=== PATIENT | male | born 1985 | race Caucasian/White ===

== ENCOUNTER 2023-09-19 12:53 | Emergency (ER) | payer SELFPAY ==
--- NOTE | 2023-09-19 13:13 | ED_ITS ---
HPI - General Adult General Chief complaint: Psychiatric Symptoms Stated complaint: SI, SECTION 12 BY PD, SERIVJESSICA DOG WITH PT PER EMS Time Seen by Provider: 09/19/23 13:06 Source: patient, EMS and police Mode of arrival: EMS Limitations: no limitations History of Present Illness ED Provider: Susanna Foreman PA-C HPI narrative: Patient is a 37 year old assigned male at with no reported medical history presenting to the emergency department today on a section 12 after calling a [place] crisis line. Patient states that he called the crisis line and asked to speak to someone other than who he was speaking to originally, an argument broke out between them, and she called the police to pick him up and take him to the hospital. Crisis line states that the patient made a suicidal statement during the conversation with them. Patient states that he is trying to get back to [place] but didn't have enough money for gas. Patient states that he was going to meet up with friends today to get gas money to go back to [place]. Patient denies any suicidal ideation or homicidal ideation. Patient denies any dizziness, lightheadedness, abdominal pain, nausea, vomiting, fever, chills, blurry vision, double vision, loss of vision, chest pain, difficulty breathing, shortness of breath, back pain, night sweats, pain with urination, increased urinary frequency, increased urinary urgency, blood in his urine or stool, syncope or a near syncopal episode, recent trauma or falls, bowel incontinence, bladder incontinence, bowel retention, bladder retention, or any other complaints at this time. Relieving factors: none Exacerbating factors: none Associated symptoms: denies other symptoms Treatments prior to arrival: none Related Data Allergies Allergy/AdvReac Type Severity Reaction Status Date / Time No Known Allergies Allergy Verified 09/19/23 13:20 Review of Systems Constitutional: Constitutional: Reports no additional constitutional complaints, Denies chills, Denies fever(s) and Denies night sweats Eyes: Eyes: Reports no additional eye complaints, Denies blurry vision, Denies change in vision, Denies diplopia, Denies eye discharge, Denies loss of vision and Denies eye pain ENT: Denies dizziness Cardiovascular: Cardiovascular: Reports no additional cardiovascular complaints, Denies chest pain, Denies lightheadedness, Denies Loss of Consciousness and Denies dyspnea Respiratory: Respiratory: Reports no additional respiratory complaints and Denies dyspnea Gastrointestinal: Gastrointestinal: Reports no additional gastrointestinal complaints, Denies abdominal pain, Denies melena, Denies hematochezia, Denies change in bowel habits and Denies change in stool character Genitourinary: Genitourinary: Reports no additional male genitourinary complaints, Denies hematuria, Denies oliguria, Denies difficulty urinating, Den ies dysuria, Denies urinary frequency, Denies urinary hesitancy, Denies urinary incontinence and Denies urinary urgency Musculoskeletal: Musculoskeletal: Reports no additional musculoskeletal complaints, Denies numbness and Denies tingling Neurologic: Denies dizziness, Denies loss of vision, Denies numbness and Den ies tingling Psychiatric: Psychiatric: Reports no additional psychiatric complaints, Denies homicidal ideation and Denies suicidal ideation Endocrine: Endocrine: Reports no additional endocrine complaints Hematologic/Lymphatic: Hematologic/Lymphatic: Reports no additional hematologic/lymphatic complaints Allergic/Immunologic: Allergic/Immunologic: Reports no additional allergic/imm unologic complaints PMFSH Past Medical History Attestation statement: The following information was validated with the patient. Source: old records reviewed and nursing notes reviewed Social History Social History Advance Directives: No Advance Directives Information Provided: Yes Do you have a plan to hurt others: No Plan Physical Exam ED Vital Signs: Vital Signs - 24 hr 09/19/23 13:56 Temperature 98.1 F Pulse Rate 86 Respiratory Rate 16 Blood Pressure 122/94 H Pulse Oximetry 94 Oxygen Delivery Method Room Air BMI result Body Mass Index 39.8 Const General: cooperative, no acute distress, alert and awake Nutritional Appearance: well nourished Orientation/consciousness: patient oriented x3 Limitations: no limitations [facility] Head: Yes normal to inspection and Yes atraumatic Ears: hearing grossly normal bilaterally and external ears normal General nose exam: Normal external nose present, no nasal discharge noted and no epistaxis Face and sinus: Yes normal facial exam, No abrasion and No laceration Mouth: Normal oral and palatal mucosa present, no drooling and no muffled voice Eyes General: appearance normal, both eyes and all related structures Periorbital: periorbital findings normal Eyelids: Yes eyelids normal Conjunctivae: conjunctivae normal Pupils: Equal, round and reactive pupils present EOM: EOMs intact bilaterally Neck Neck: Yes normal visual inspection, Yes full ROM and Yes no lymphadenopathy Chest Chest palpation & inspection: normal inspection of the chest Resp Effort & Inspection: normal respiratory effort and able to speak in complete sentences GI Inspection: Yes normal to inspection Neuro General: patient oriented x3 and moves all extremities Cranial nerves: Yes Equal, round and reactive pupils present Cognition (Neuro): normal cognition Motor exam (neuro): 5/5 motor strength present throughout Sensory Exam: Normal double simultaneous stimulation for sensation Coordination: [id number] test normal Extrem General: Yes normal to inspection, Yes full ROM and Yes capillary refill normal Psych Appearance: grossly normal Mental Status: mental status grossly normal Affect: normal affect Attitude: cooperative Thought process: Normal thought process present Thought content: Normal thought content present Insight: Good insight present (Psych) Medical Decision Making Medical Decision Making MDM Narrative: Patient is a 37 year old assigned male at with no reported medical history presenting to the emergency department today for an examination after calling a crisis line. Patient's physical exam was unremarkable. I explained my physical exam findings to the patient. I answered all questions asked by the patient. The patient clarified that when he called the crisis line, the friends he was staying with had gone to bed early, he began drinking, and he was lonely. Patient was able to call a friend to meet him at his car to help him get back to [place]. Patient again contracted for safety. Patient declined having any thoughts of hurting himself or others. Patient states that he will call 911 immediately if he began to have any thoughts of hurting himself or others. A member of the CARE team was at the bedside during these conversations and agrees with discharge of the patient given he has an intact and thorough safety plan and contracts for safety. I stressed the importance of the patient taking his medication as prescribed. I stressed the importance of the patient following up with his primary care provider. I stressed the importance of the patient returning to the emergency department immediately if he were to develop any dizziness, shortness of breath, difficulty breathing, chest pain, blurry vision, loss of vision, nausea, vomiting, abdominal pain, fever, chills, back pain, or any other complaints. Patient verbalized agreement and understanding with this treatment plan and discharge. Differential Diagnosis Differential Diagnoses: The differential diagnosis associated with the presentation includes Crisis Depression Medical examination Admission/Observation Consideration of admission/observation: Escalation of care including admission/observation considered Patient would have been admitted to the hospital had his clinical presentation warranted hospital admission. Independent Historian Clinical information obtained from an independent historian. History obtained from or confirmed by: EMS (EMS provided additional history and confirmed the history provided by the patient.) and Other (Police provided additional history and confirmed the history provided by the patient.) Discharge Plan Discharge Clinical Impression: Examination Patient Disposition: Home, Self-Care Instructions: Normal Exam (ED) Additional Instructions: If you begin to have ANY suicidal or homicidal ideation, call 911 immediately. Follow up with your primary care provider. Return to the emergency department immediately if you develop any dizziness, shortness of breath, difficulty breathing, chest pain, blurry vision, loss of vision, nausea, vomiting, abdominal pain, fever, chills, back pain, or any other complaints. [facility]: [address] [place] [id number] Walk in hours from 10am - 12pm Open from 10am - 12pm [facility] Crisis Services: [address] [place] [address] Walk in hours from 10am - 12pm Open [facility]: [address] [place] [id number] [address] [place] [id number] Hours: M-F 8am to 8pm Wednesday and Wednesday 9am to 5pm Referrals: [facility] [Provider Group] (Call to establish and follow up with a primary care provider. If you already have a primary care provider, please follow up with them.) [facility] Hernandez [Provider Group] [facility] Primary Amy Stroud [Provider Group] Interventions: [place]-Suicide Risk Severity Scale Last Done: 09/19/23 14:01 ED Discharge Assessment Last Done: 09/19/23 13:56 Discharge Date/Time: 09/19/23 14:01 Print Language: Nepalese
[2023-09-19 13:16] VITALS: BP 120/88; PULSE 86; O2SAT 96; BMI 39.8
[2023-09-19 13:56] VITALS: BP 122/94; PULSE 86; RESP 16; TEMP 36.7; O2SAT 94
--- NOTE | 2023-09-19 13:57 | PC.NURSE ---
pt spoke w/ ED provider as well as CARE team at this time. pt cleared by both sides. pt ready for discharge.
== END 2023-09-19 14:01 | disposition home or self-care (01) ==
PROVIDERS: Emergency Provider Student in an Organized Health Care Education/Training Program
DX: Z03.89 Encounter for observation for other suspected diseases and conditions ruled out (principal)
CPT/HCPCS: 99283